=== PATIENT | female | born 1970 | race Caucasian/White ===

== ENCOUNTER 2021-11-15 20:22 | Emergency (ER) | payer OTHER ==
[~2021-11-15] VITALS: Ht 160 cm; Wt 70.3 kg
[2021-11-15] MEDS ORDERED: CYMBALTA60 MG (21:50)
[2021-11-15] MEDS ORDERED: VYVANSE20 MG (21:51)
[2021-11-16] MEDS ORDERED: LEVSIN/SL0.125 MG SL (01:16)
== END 2021-11-16 01:21 | disposition home or self-care (01) ==
LOC: ER 20:22
DX: R10.11 Right upper quadrant pain (principal)